=== PATIENT | female | born 1955 | race Caucasian/White ===

== ENCOUNTER 2021-12-10 13:22 | Outpatient (REF) | payer MEDICARE, SELFPAY ==
[2021-12-10 14:49] LABS: Anion Gap 11 (12-20); Blood Urea Nitrogen 15 mg/dL (9-16); Calcium 9.8 mg/dL (8.4-10.2); Carbon Dioxide 26 mmol/L (22-29); Chloride 107 mmol/L (96-108); Estimated Glomerular Filt Rate 32; Glucose Random 95 mg/dL (60-115); Potassium 5.3 mmol/L (3.3-5.1); Sodium 139 mmol/L (135-145)
[2021-12-10 15:16] LABS: T4 Thyroxine 10.4 ug/dL (4.5-12.0); Thyroid Stimulating Hormone 2.27 uIU/mL (0.32-4.0)
[2021-12-10 15:29] LABS: Folate 10.6 ng/mL (> or = 4.0); Vitamin B12 861 pg/mL (200-900)
== END 2021-12-10 13:23 | disposition home or self-care (01) ==
LOC: HO.LAB 13:22
PROVIDERS: PCP Internal Medicine; Visit Provider Psychiatry & Neurology Neurology
DX: G31.84 Mild cognitive impairment of uncertain or unknown etiology (principal)
CPT/HCPCS: 36415; 80048; 82607; 82746; 84436; 84443